=== PATIENT | male | born 1980 | race Caucasian/White ===

== ENCOUNTER 2023-01-20 15:27 | Outpatient (CLI) | payer OTHER, SELFPAY ==
[2023-01-20 19:23] LABS: Basophils Percent Auto 0.4 % (0.2-1.2); Eosinophils Absolute Auto 0.3 K/mm3 (0-0.3); Eosinophils Percent Auto 3.7 % (0-4.4); Immature Granulocyte Absolute 0.02 K/mm3 (0.00-0.031); Immature Granulocyte Percent A 0.3 % (0-0.5); Lymphocytes Absolute Auto 1.59 K/mm3 (0.9-3.2); Lymphocytes Percent Auto 20.8 % (18.3-44.2); Mean Corpuscular Hemoglobin 29.9 pg (26-34); Mean Corpuscular Volume 87.7 fl (80-100); Mean Platelet Volume 11.6 fl (7.4-10.4); Monocytes Absolute Auto 0.6 K/mm3 (0.1-0.6); Neutrophils Absolute Auto 5.1 K/mm3 (1.3-6.7); Neutrophils Percent Auto 66.8 % (45.5-73.1); Platelet Count Result 204 k/mm3 (150-375); Red Blood Count 5.36 M/mm3 (4.6-6.20); Red Cell Distribution Width 12.8 % (11.5-14.5); White Blood Count 7.7 K/mm3 (4.5-10.0)
[2023-01-20 20:32] LABS: Alanine Aminotransferase 58 U/L (6-50); Alkaline Phosphatase 71 U/L (38-126); Anion Gap 7 mmol/L (8-16); Aspartate Amino Transferase 36 U/L (17-59); Bilirubin,Total 1.4 mg/dL (0.2-1.3); Blood Urea Nitrogen 14 mg/dL (9-20); Calcium 9.4 mg/dL (8.4-10.2); Carbon Dioxide 27 mmol/L (22-30); Chloride 103 mmol/L (98-107); Cholesterol 228 mg/dL (0-200); Estimated Glomerular Filt Rate > 60; Glucose 101 mg/dL (65-110); HDL Direct 57 mg/dL; Sodium 137 mmol/L (137-145); Triglycerides 146 mg/dL (<150)
[2023-01-20 20:44] LABS: LDL Cholesterol Direct 134 mg/dL
== END 2023-01-20 15:28 | disposition home or self-care (01) ==
LOC: ANHBWCLAB 15:28
PROVIDERS: PCP Family Medicine; Visit Provider Family Medicine
DX: Z00.00 Encounter for general adult medical examination without abnormal findings (principal); R19.7 Diarrhea, unspecified; H91.90 Unspecified hearing loss, unspecified ear
CPT/HCPCS: 36415; 80053; 80061; 85025; 86003

== ENCOUNTER 2024-08-07 14:57 | Outpatient (CLI) | payer OTHER, SELFPAY ==
[2024-08-07 18:54] LABS: Hematocrit 45.2 % (42.0-52.0); Hemoglobin 15.8 g/dL (14.0-18.0); Mean Corpuscular Volume 88.8 fl (80-100); Mean Platelet Volume 11.7 fl (7.4-10.4); Platelet Count Result 185 k/mm3 (150-375); Red Blood Count 5.09 M/mm3 (4.6-6.20); Red Cell Distribution Width 13.1 % (11.5-14.5); White Blood Count 7.3 K/mm3 (4.5-10.0)
[2024-08-07 19:01] LABS: Alanine Aminotransferase 77 U/L (6-50); Albumin Level 4.6 g/dL (3.5-5.1); Alkaline Phosphatase 64 U/L (38-126); Anion Gap 11 mmol/L (4-12); Aspartate Amino Transferase 56 U/L (17-59); Bilirubin,Total 1.6 mg/dL (0.2-1.3); Blood Urea Nitrogen 13 mg/dL (9-20); Calcium 9.2 mg/dL (8.4-10.2); Carbon Dioxide 27 mmol/L (22-30); Chloride 99 mmol/L (98-107); Cholesterol 225 mg/dL (0-200); Estimated Glomerular Filt Rate > 60; Glucose 99 mg/dL (65-110); HDL Direct 56 mg/dL; Potassium 3.9 mmol/L (3.4-5.0); Sodium 137 mmol/L (137-145); Triglycerides 231 mg/dL (<150)
[2024-08-07 19:11] LABS: LDL Cholesterol Direct 121 mg/dL
== END 2024-08-07 14:58 | disposition home or self-care (01) ==
LOC: ANHBWCLAB 15:11
PROVIDERS: PCP Nurse Practitioner Adult Health; Visit Provider Nurse Practitioner Adult Health
DX: Z13.9 Encounter for screening, unspecified (principal)
CPT/HCPCS: 36415; 80053; 80061; 84443; 85027

== ENCOUNTER 2025-08-08 08:21 | Outpatient (CLI) | payer OTHER, SELFPAY ==
--- OUTSIDE RECORDS SUMMARY | 2025-08-08 08:36 | XMS_ITS | Clinical Summary ---
Author Organization [facility] Address [address] [place] [address] Care Team Providers Care Certified Tumor Registrar Name Role Phone No, Physician Primary Care Provider [phone] Allergies Active Allergy Reactions Criticality Noted Date Comments Penicillins Unknown 05/11/2019 Medications HYDROcodone-lawanda taminophen (NORCO) 5-325 mg per tabletIndicatio ns:Pain Take 1 tablet by mouth every 6 (six) hours as needed for pain for up to 12 doses 12 tablet 9 Active Additional Information Patient not taking.Reported on 01/23/2022 ibuprofen (ADVIL,MOTRIN) 800 mg tablet Take 1 tablet (800 mg total) by mouth every 8 (eight) hours as needed for pain 30 tablet 9 Active Additional Information Patient not taking.Reported on 01/23/2022 meloxicam (MOBIC) 15 mg tabletIndicatio ns:ANKLE SPRAIN Take 1 tablet (15 mg total) by mouth daily 10 tablet 2 Active Active Problems No known active problems Immunizations Immunization Administration Dates Next Due Tdap 05/11/2019 Surgical History Surgery Date Site/Laterality Comments AMPUTATION FINGER / THUMB 05/11/2020 HERNIA REPAIR Family History Medical History Relation Name Comments Diabetes Father Diabetes Mother Relation Name Status Comments Father Mother Social History Tobacco Use Types Packs/Day Years Used Date Smoking Tobacco: Never Smokeless Tobacco: Current Alcohol Use Standard Drinks/Week Comments Yes 0 (1 standard drink = 0.6 oz pur e alcohol) Sex and Gender Information Value Date Recorded Sex Assigned at Not on file Legal Sex Male 2:29 PM [employer] Gender Identity Not on file Sexual Orientation Not on file Obstetrics History Last Filed Vital Signs Vital Sign Reading Time Taken Comments Blood Pressure 132/90 12/15/2021 6:43 AM [employer]METOLOGY INSTRUCTOR Pulse 80 12/15/2021 6:43 AM [employer]METOLOGY INSTRUCTOR Temperature 36.4 C (97.5 F) 12/15/2021 6:43 AM COSMETOLOGY INSTRUCTOR Respiratory Rate 20 12/15/2021 6:43 AM COSMETOLOGY INSTRUCTOR Oxygen Saturation 100% 12/15/2021 6:43 AM COSMETOLOGY INSTRUCTOR Inhaled Oxygen Concentration - - Weight 113.4 kg (250 lb) 02/19/2022 11:34 AM CDT Height 182.9 cm (6') 02/19/2022 11:34 AM CDT Body Mass Index 33.91 02/19/2022 11:34 AM CDT Plan of Treatment Not on file Insurance [place] [address] [address] * Guarantor: ROQUE GLEZ Account Type Relation to Patient Date of Phone Billing Address Workers Comp Employer [employer] [place] [address] Care Teams Certified Tumor Registrar Relationship Specialty Start Date End Date No, Physician PCP - General 01/15/22
[2025-08-08 19:31] LABS: Hematocrit 46.0 % (42.0-52.0); Hemoglobin 15.2 g/dL (14.0-18.0); Mean Corpuscular HGB Conc 33.0 g/dl (32-36); Mean Corpuscular Hemoglobin 29.9 pg (26-34); Mean Corpuscular Volume 90.6 fl (80-100); Platelet Count Result 171 k/mm3 (150-375); Red Blood Count 5.08 M/mm3 (4.6-6.20); White Blood Count 5.5 K/mm3 (4.5-10.0)
[2025-08-08 19:51] LABS: Alanine Aminotransferase 76 U/L (6-50); Albumin Level 4.6 g/dL (3.5-5.1); Alkaline Phosphatase 62 U/L (38-126); Anion Gap 4 mmol/L (4-12); Aspartate Amino Transferase 72 U/L (17-59); Bilirubin,Total 2.0 mg/dL (0.2-1.3); Blood Urea Nitrogen 17 mg/dL (9-20); Calcium 9.1 mg/dL (8.4-10.2); Carbon Dioxide 28 mmol/L (22-30); Chloride 103 mmol/L (98-107); Cholesterol 207 mg/dL (0-200); Estimated Glomerular Filt Rate > 60; Glucose 99 mg/dL (65-110); HDL Direct 44 mg/dL; Potassium 4.0 mmol/L (3.4-5.0); Sodium 135 mmol/L (137-145); Total Protein 7.7 g/dL (6.3-8.2); Triglycerides 183 mg/dL (<150)
== END 2025-08-08 08:22 | disposition home or self-care (01) ==
LOC: ANHBWCLAB 08:24
PROVIDERS: PCP Nurse Practitioner Adult Health; Visit Provider Nurse Practitioner Adult Health
DX: Z00.00 Encounter for general adult medical examination without abnormal findings (principal)
CPT/HCPCS: 36415; 80053; 80061; 85027